=== PATIENT | male | born 1960 | race Hispanic/Latino ===

== ENCOUNTER 2017-02-11 05:46 | Observation (INO) | payer OTHER ==
--- NOTE | 2017-02-11 06:33 | ED PDOC ---
Upper Extremity Pain/Injury Time Seen by Provider: 02/11/17 06:06 Chief Complaint (Nursing): Upper Extremity Problem/Injury Chief Complaint (Provider): Right wrist and shoulder pain History Per: Patient History/Exam Limitations: no limitations Onset/Duration Of Symptoms: Days (4) Current Symptoms Are (Timing): Still Present Quality: "Pain" Severity: Moderate Additional History Per: Patient Additional Complaint(s): 56 y/o male here on the advice of Dr. Bender. He complains that he slipped and fell 4 days ago and since then has had right wrist pain and swelling, decreased ROM of the right hand, right shoulder pain, and right clavical pain. Denies head injury, LOC, or other complaint. Past Medical History Vital Signs: Last Vital Signs Temp 98.1 F 02/11/17 05:52 Pulse 98 H 02/11/17 05:52 Resp 16 02/11/17 05:52 BP 176/98 H 02/11/17 05:52 Pulse Ox 100 02/11/17 05:52 - Medical History PMH: Diabetes, HTN Other PMH: Kidney transplant - Surgical History Other surgeries: Kidney transplant, cardiac ablation - Family History Family History: States: Unknown Family Hx - Home Medications Home Medications: Ambulatory Orders Medication Instructions Recorded Acyclovir [Zovirax] 800 mg PO DAILY 02/11/17 Atorvastatin [Lipitor] 80 mg PO DAILY 02/11/17 Ergocalciferol (Vitamin D2) 5,000 units PO QWK 02/11/17 [Vitamin D] Gemfibrozil 600 mg PO BID 02/11/17 Insulin Detemir [Levemir] 50 units SC DAILY 02/11/17 Insulin Lispro [Humalog Kwikpen 20 units SC BID 02/11/17 U-100] Mycophenolate Mofetil [Cellcept] 500 mg PO BID 02/11/17 Pantoprazole Sodium [Protonix] 40 mg PO DAILY 02/11/17 Prednisone [Porfirio] 5 mg PO DAILY 02/11/17 Tacrolimus [Prograf Cap] 1 mg PO DAILY 02/11/17 Valsartan [Diovan] 320 mg PO DAILY 02/11/17 amLODIPine [Norvasc] 5 mg PO BID 02/11/17 oxyCODONE/Acetaminophen [Percocet 1 ea PO Q4 #30 tab 02/11/17 5/325 mg Tab] - Allergies Allergies/Adverse Reactions: Allergies Allergy/AdvReac Type Severity Reaction Status Date / Time No Known Allergies Allergy Verified 02/11/17 05:55 Review of Systems ROS Statement: Except As Marked, All Systems Reviewed And Found Negative Musculoskeletal: Positive for: Shoulder Pain, Arm Pain, Hand Pain Physical Exam - Reviewed Nursing Documentation Reviewed: Yes Vital Signs Reviewed: Yes - Physical Exam Appears: Positive for: Well, Non-toxic, No Acute Distress Head Exam: Positive for: ATRAUMATIC, NORMAL INSPECTION, NORMOCEPHALIC Skin: Positive for: Normal Color, Warm, DRY Eye Exam: Positive for: EOMI, Normal appearance, PERRL ENT: Positive for: Normal ENT Inspection Neck: Positive for: Normal, Painless ROM Cardiovascular/Chest: Positive for: Regular Rate, Rhythm Respiratory: Positive for: CNT, Normal Breath Sounds Gastrointestinal/Abdominal: Positive for: Normal Exam, Bowel Sounds, Soft Back: Positive for: Normal Inspection Extremity: Positive for: Tenderness (right distal radius, right shoulder, right distal clavicle. ), Capillary Refill (normal), Deformity (right distal radius), Swelling (right wrist) Neurologic/Psych: Positive for: Alert, Oriented - Laboratory Results Result Diagrams: 02/11/17 06:15 02/11/17 06:15 - ECG O2 Sat by Pulse Oximetry: 100 (RA) Pulse Ox Interpretation: Normal Medical Decision Making Medical Decision Making: Initial Impression: Distal Radius Fracture v. Shoulder Fracture v. Clavicular Fracture. Clinically this appears to be a Colles Fracture. Initial Plan: - XR Right shoulder, wrist, and forearm. - IV Morphine for pain control. - Consult Dr. Bender 06:34AM: Spoke with Dr. Bender for management of apparaent acute wrist fracture who asked that the patient be admitted to the hospitalist. Xray wrist distal radius fx Xray clavicle no acute findings Xray shoulder no acute findings Xray chest rib possible 10th rib fx Scribe Attestation: Documented by Dina Mckeon, acting as a scribe for Veronica Monroe MD. Scribe Attestation: All medical record entries made by the Scribe were at my direction and personally dictated by me. I have reviewed the chart and agree that the record accurately reflects my personal performance of the history, physical exam, medical decision making, and the department course for this patient. I have also personally directed, reviewed, and agree with the discharge instructions and disposition. Disposition - Clinical Impression Clinical Impression: Fracture of distal end of right radius - Patient ED Disposition Is Patient to be Admitted: Yes Discussed With : Lo Elizabeth Doctor Will See Patient In The: Hospital Counseled Patient/Family Regarding: Diagnosis - Disposition Disposition Time: 06:35 Condition: GOOD - Pt Status Changed To: Hospital Disposition Of: Inpatient - Admit Certification Admit to Inpatient:: After my assessment, the patient will require hospitalization for at least two midnights. This is because of the severity of symptoms shown, intensity of services needed, and/or the medical risk in this patient being treated as an outpatient. - POA Present On Arrival: Falls Or Trauma, Poor Glycemic Control
[2017-02-11 07:36] LABS: BASO % 0.4 % (0.0-2.0); EOS # 0.2 K/uL (0.0-0.7); EOS % 2.3 % (0.0-4.0); LYMPH # 1.3 K/uL (1.0-4.3); LYMPH % 13.9 % (20.0-40.0); MEAN CELL VOLUME 92.6 fl (80.0-94.0); MEAN CORPUSCULAR HEMOGLOBIN 31.9 pg (27.0-31.0); MEAN CORPUSCULAR HGB CONC 34.4 g/dL (33.0-37.0); MEAN PLATELET VOLUME 7.8 fl (7.2-11.7); MONO # 0.9 K/uL (0.0-0.8); MONO % 8.8 % (0.0-10.0); NEUT # 7.2 K/uL (1.8-7.0); NEUT % 74.6 % (50.0-75.0); NRBC % 0.2 % (0.0-0.0); RED CELL DISTRIBUTION WIDTH 12.8 % (11.5-14.5); WHITE BLOOD COUNT 9.7 K/uL (4.8-10.8)
[2017-02-11 07:40] LABS: BLOOD UREA NITROGEN 27 mg/dl (9-20); CALCIUM 10.3 mg/dL (8.4-10.2); CARBON DIOXIDE 23 mmol/L (22-30); CHLORIDE 102 mmol/L (98-107); GFR AFRICAN-AMERICAN > 60; GLUCOSE,RANDOM 194 mg/dL (75-110); SODIUM 142 mmol/l (132-148)
[2017-02-11 07:44] LABS: POTASSIUM 4.6 MMOL/L (3.6-5.0)
--- NOTE | 2017-02-11 08:04 | CP.PCM.HP ---
History of Present Illness - History of Present Illness History of Present Illness: Chief Complaint : s/p Fall- complains of right wrist , right shoulder and right ribcage pain HPI: 56 y/o gent with hx of HTN, DM, A Fib s/p Ablation ( sinus rhythm at present, on Pradaxa ), Hx of Renal Transplant tripped on a carpet and fell 4 days ago. He used his right hand to brace himself from the fall and landed on his right side. Since the fall he started having severe right wrist pain , right shoulder and rib pain. Pain worse with movement and he also noticed swelling of his right hand/wrist area. Patient did not go to the ED at that time. He went to see his PMD who prescribed Percocet and advised him to see Orthopedics . Because of worsening pain and swelling he called Dr Bender and was advised to go to the Emergency Room. Present on Admission - Present on Admission Any Indicators Present on Admission: No Review of Systems - Review of Systems All systems: reviewed and no additional remarkable complaints except - Constitutional Constitutional: absent: Fever, Headache - EENT Eyes: absent: Change in Vision Ears: absent: Ear Discharge, Dizziness Nose/Mouth/Throat: absent: Nasal Congestion - Cardiovascular Cardiovascular: absent: Chest Pain, Chest Pain at Rest, Edema, Orthopnea, Palpitations - Respiratory Respiratory: absent: Cough, Dyspnea - Gastrointestinal Gastrointestinal: absent: Abdominal Pain, Nausea, Vomiting - Musculoskeletal Musculoskeletal: Joint Swelling, Limited Range of Motion. absent: Back Pain, Neck Pain Additional comments: right wrist shoulder and rib pain - Integumentary Integumentary: absent: Pruritus - Neurological Neurological: absent: Disequilibrium, Dizziness, Numbness, Focal Weakness, Headaches - Psychiatric Psychiatric: absent: Depression, Other - Endocrine Endocrine: absent: Polydipsia, Polyphagia, Polyuria - Hematologic/Lymphatic Hematologic: absent: Easy Bleeding, Easy Bruising Past Patient History - Infectious Disease Hx of Infectious Diseases: None - Tetanus Immunizations Tetanus Immunization: Unknown - Past Medical History & Family History Past Medical History?: Yes Pertinent Family History: Familial Nephritis ,ESRD- mother and siblings HTN ,DM :parents - Past Social History Smoking Status: Never Smoked Chewing Tobacco Use: No Cigar Use: Yes Occupation: retired Alcohol: Occasional Drugs: Denies Home Situation {Lives}: With Family Domestic Violence: Negative - CARDIAC Hx Cardiac Disorders: Yes Hx Atrial Fibrillation: Yes (s/p Ablation) Hx Hypertension: Yes - PULMONARY Hx Respiratory Disorders: No - NEUROLOGICAL Hx Neurological Disorder: No - HEENT Hx HEENT Problems: No - RENAL Hx Renal Failure: Yes (hx of Hemodialysis however had Renal Transplant in 2004, off HD since then) - ENDOCRINE/METABOLIC Hx Diabetes Mellitus Type 2: Yes - INTEGUMENTARY Hx Squamous Cell: Yes (s/p Moh's surgery for Squamous cell CA) - MUSCULOSKELETAL/RHEUMATOLOGICAL Other/Comment: hx of right 5th digit fracture- pins placed -8yrs ago - GASTROINTESTINAL Hx Gastroesophageal Reflux: Yes - GENITOURINARY/GYNECOLOGICAL Other/Comment: history of Renal Trasplant 2004. Hx of ESRD, HD- off dialysis since transplant - PSYCHIATRIC Hx Psychophysiologic Disorder: No Hx Substance Use: No - SURGICAL HISTORY Hx Surgeries: Yes Hx Kidney Transplant: Yes Other/Comment: AV Fistula sx. Renal Transplant. Ablation for A Fib. Right 5th digit pinning for fracture. Moh's surgery for Sq cell CA - ANESTHESIA Hx Anesthesia: Yes Hx Anesthesia Reactions: No Meds Allergies/Adverse Reactions: Allergies Allergy/AdvReac Type Severity Reaction Status Date / Time No Known Allergies Allergy Verified 02/11/17 05:55 Physical Exam - Constitutional Appears: Well, No Acute Distress - Head Exam Head Exam: ATRAUMATIC, NORMAL INSPECTION, NORMOCEPHALIC - Eye Exam Eye Exam: EOMI, Normal appearance, PERRL Pupil Exam: NORMAL ACCOMODATION - ENT Exam ENT Exam: Mucous Membranes Moist, Normal External Ear Exam - Neck Exam Neck exam: Positive for: Full Rom. Negative for: Meningismus - Respiratory Exam Respiratory Exam: NORMAL BREATHING PATTERN. absent: Respiratory Distress - Cardiovascular Exam Cardiovascular Exam: REGULAR RHYTHM, +S1, +S2 - GI/Abdominal Exam GI & Abdominal Exam: Normal Bowel Sounds, Soft. absent: Tenderness - Extremities Exam Extremities exam: Positive for: normal capillary refill, pedal pulses present. Negative for: calf tenderness, pedal edema Additional comments: Runable to do ROM right shoulder and wrist bec of pain tenderness right rib and shoulder - Back Exam Back exam: FULL ROM. absent: CVA tenderness (L), CVA tenderness (R) - Neurological Exam Neurological exam: Alert, CN II-XII Intact, Oriented x3, Reflexes Normal - Psychiatric Exam Psychiatric exam: Normal Affect, Normal Mood - Skin Skin Exam: Dry, Normal Color, Warm Results - Vital Signs Recent Vital Signs: Last Vital Signs Temp 98.3 F 02/11/17 07:44 Pulse 90 02/11/17 07:44 Resp 18 02/11/17 07:44 BP 147/87 02/11/17 07:44 Pulse Ox 100 02/11/17 07:43 - Labs Result Diagrams: 02/11/17 06:15 02/11/17 06:15 - EKG Data EKG Interpreted by: Myself EKG shows normal: Sinus rhythm Rate: Normal Assessment & Plan (1) Wrist fracture, right Status: Acute (2) Fall from slip, trip, or stumble Status: Acute (3) Right shoulder pain Status: Acute (4) Rib pain on right side Status: Acute (5) History of renal transplant Status: Chronic (6) HTN (hypertension) Status: Chronic (7) DM type 2 (diabetes mellitus, type 2) Status: Chronic (8) Status post ablation of atrial fibrillation Status: Chronic (9) DVT prophylaxis Status: Acute - Assessment and Plan (Free Text) Assessment: 56 y/o gent with hx of HTN, DM, A Fib s/p Ablation on PRadaxa, Hx of Renal Transplant, came in complaining of right wrist, shoulder and rib pain. Tripped and fell 4 days ago. Last intake of Pradaxa - SaturdayFebruary 08 at 4am (1) Wrist fracture, right Status: Acute Wrist Xray : comminuted distal radius fracture Ortho consult: Dr Napoleon Bruce mgt- IV Morphine prn NPO for now CBC,BMP,PT,PTT Cardio consulted- for pre op eval (2) Fall from slip, trip, or stumble Status: Acute pt tripped on carpet - used right hand to support himself denies head trauma no hip pain, no back pain (3) Right shoulder pain Status: Acute right shoulder and clavicle xray : no fracture (4) Rib pain on right side Status: Acute Rib xray: pending Pain mgt (5) History of renal transplant Status: Chronic 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 for 4 years till he got Renal Transplant - renal function stable since transplant cont Tacrolimus, Cellcept , Prednisone also on Acyclovir (6) HTN (hypertension) controlled Status: Chronic cont Diovan and Norvasc (7) DM type 2 (diabetes mellitus, type 2) Status: Chronic Accucheck q ac and HS Pt took his Levemir dose at 5am (8) Status post ablation of atrial fibrillation Status: Chronic Pt was on Pradaxa- last intake February 08 at 4am Cardiology - Dr Rosario consulted for pre op optimization Pt states had Nuclear Stress test 2 mos ago and he was told it was negative EKG (9) DVT prophylaxis Status: Acute Decision To Admit - Pt Status Changed To: Hospital Disposition Of: Inpatient - Admit Certification Admit to Inpatient:: After my assessment, the patient will require hospitalization for at least two midnights. This is because of the severity of symptoms shown, intensity of services needed, and/or the medical risk in this patient being treated as an outpatient. - . Bed Request Type: Med/Surg Admitting Physician: Flaquita Franco
[2017-02-11] MEDS ORDERED: Bacitracin Ointment 30 GM TUBE ONE (08:23)
--- NOTE | 2017-02-11 09:04 | CP.PCM.CON ---
History of Present Illness - History of Present Illness History of Present Illness: ID: 56 yo male CC: pain, swellin deformity distal radius HPI- pt presenbts after fall last week. Pt has increasing pain anmd restircted ROM R wrist. Pt had heard I am chief at [facility]. Pt presents this AM with discomfort pain and restricted ROM R wrist. Pt with numbness, tingling 1st 3 figers R had, and pain and deformity R wrist. Case discussed [facility] physiscian and pt is admitted thru ER. No evidence of compartment syndrome on quetstioning. No increase pain in passive flexion/dorsifilexion+ Review of Systems - Hematologic/Lymphatic Additional comments: admits descreased senstaion first 3 fingers R hand Past Patient History - Past Medical History & Family History Past Medical History?: Yes - Past Social History Smoking Status: Never Smoked - CARDIAC Hx Hypertension: Yes - RENAL Hx Renal Failure: Yes - ENDOCRINE/METABOLIC Hx Diabetes Mellitus Type 2: Yes - MUSCULOSKELETAL/RHEUMATOLOGICAL Hx Falls: Yes - PSYCHIATRIC Hx Substance Use: No - SURGICAL HISTORY Hx Kidney Transplant: Yes Hx Open Reduction Internal Fixation: Yes (s/p ORIF displaced 5th metacarpal fx) Other/Comment: Ablation, Right wrist surgery - ANESTHESIA Hx Anesthesia: Yes Hx Anesthesia Reactions: No Meds Allergies/Adverse Reactions: Allergies Allergy/AdvReac Type Severity Reaction Status Date / Time No Known Allergies Allergy Verified 02/11/17 05:55 Physical Exam - Additional Findings Additional findings: objective exam systemic exam- please refer to hospitalist note Musculoskekltal stance/gait- defrred R wrist ROM - restricted decreased sensation 1st 3 fingers R hand + deformity/ + pain and resticted ROM +capillary refill/ no evdince for compartment syndrome Results - Vital Signs Recent Vital Signs: Last Vital Signs Temp 98.3 F 02/11/17 08:02 Pulse 90 02/11/17 08:02 Resp 20 02/11/17 08:13 BP 147/87 02/11/17 08:02 Pulse Ox 95 02/11/17 08:13 - Labs Result Diagrams: 02/11/17 06:15 02/11/17 06:15 - Impressions Impression: Xrays displaced/comminuted distal radius fracture Assessment & Plan - Assessment and Plan (Free Text) Assessment: A- disp[-laced/comminuted distal radius fx evidnce fo median nerve compression P- Pros, cons risks and benfits of carpal tunnel exploration and release/ open reduction /internal fixation displaced distal radius fracture discussed at length. Possibility of infection, mechanical failure, thromboembolic disease discussed at length. Possibility of stiffness/ possibility of nerve injury discussed. No promises guarantees
--- NOTE | 2017-02-11 09:24 | RAD ---
PROCEDURE: Right Wrist Radiographs. HISTORY: wrist pain injury COMPARISON: None. FINDINGS: BONES: There is acute comminuted and displaced fracture at the distal right radius. Patient status post internal fixation at the 5th metacarpal bone. JOINTS: Mild arthritic degenerative changes. SOFT TISSUES: Soft tissue swelling and clips or foreign body seen adjacent to the distal right radius. OTHER FINDINGS: None. IMPRESSION: Acute comminuted and displaced fracture at the distal right radius. Soft tissue swelling and small cristela or foreign body seen adjacent to the distal right radius. Please correlate clinically.
--- NOTE | 2017-02-11 09:29 | RAD ---
PROCEDURE: Radiographs of the Right Shoulder HISTORY: shoulder pain injury COMPARISON: No prior. FINDINGS: BONES: Normal. No fracture. JOINTS: [id number]-el-[id number] degenerative changes at the AC joint. Mild narrowing of the subacromial space. SOFT TISSUES: Normal. OTHER FINDINGS: None. IMPRESSION: No evidence of acute fracture or dislocation. Degenerative changes at the AC joint.
[2017-02-11 09:56] LABS: PARTIAL THROMBOPLASTIN TIME 29.5 SECONDS (23.3-32.5)
--- NOTE | 2017-02-11 10:37 | CP.PCM.CON ---
History of Present Illness - History of Present Illness History of Present Illness: THE PATIENT IS A 56 YEAR OLD MALE WITH A HISTORY OF ATRIAL FIBRILLATION TREATED WITH SUCCESSFUL RFA, HYPERTENSION, TYPE II DM AND CRF WITH A KIDNEY STRANSPLANT. HE TRIPPED ON THE RUG OF HIS PORCH AND FELL AND BROKE HIS RIGHT WRIST. HE SAW HIS LMD WHO GAVE HIM PAIN MEDICINES AND THE PAIN WAS SP BAD TODAY THAT HE CAME TO THE ER AND X-RAYS SHOWED A RIGHT WRIST FRACTURE SO HE WAS ADMITTED. HE WAS SEEN BY ORTHOPEDICS AND WILL HAVE SURGERY AND CARDIOLOGY WAS ASKED TO SEE HIM FOR CLEARANCE PRIOR TO SURGERY. HE DENIES CHEST PAIN, PALPITATIONS OR LOC. HE DENIES CAD, CHEST PAIN OR SC HISTORY. HE HAD A NUCLEAR STRESS TEST ABOUT 6 MONTHS AGO THAT WAS NORMAL AND AN ECHOCARDIOGRAM ABOUT 2 MONTHS AGO THAT WAS GOOD. HE TAKES PRADAXA BUT HAS NOT TAKEN ANY SINCE SATURDAY. Past Patient History - Infectious Disease Hx of Infectious Diseases: None - Tetanus Immunizations Tetanus Immunization: Unknown - Past Medical History & Family History Past Medical History?: Yes - Past Social History Smoking Status: Never Smoked Chewing Tobacco Use: No Cigar Use: Yes Occupation: retired Alcohol: Occasional Drugs: Denies Home Situation {Lives}: With Family Domestic Violence: Negative - CARDIAC Hx Cardiac Disorders: Yes Hx Atrial Fibrillation: Yes (s/p Ablation) Hx Hypertension: Yes - PULMONARY Hx Respiratory Disorders: No - NEUROLOGICAL Hx Neurological Disorder: No - HEENT Hx HEENT Problems: No - RENAL Hx Renal Failure: Yes (hx of Hemodialysis however had Renal Transplant in 2004, off HD since then) - ENDOCRINE/METABOLIC Hx Diabetes Mellitus Type 2: Yes - INTEGUMENTARY Hx Squamous Cell: Yes (s/p Moh's surgery for Squamous cell CA) - MUSCULOSKELETAL/RHEUMATOLOGICAL Other/Comment: hx of right 5th digit fracture- pins placed -8yrs ago - GASTROINTESTINAL Hx Gastroesophageal Reflux: Yes - GENITOURINARY/GYNECOLOGICAL Other/Comment: history of Renal Trasplant 2004. Hx of ESRD, HD- off dialysis since transplant - PSYCHIATRIC Hx Psychophysiologic Disorder: No Hx Substance Use: No - SURGICAL HISTORY Hx Surgeries: Yes Hx Kidney Transplant: Yes Other/Comment: AV Fistula sx. Renal Transplant. Ablation for A Fib. Right 5th digit pinning for fracture. Moh's surgery for Sq cell CA - ANESTHESIA Hx Anesthesia: Yes Hx Anesthesia Reactions: No Meds Allergies/Adverse Reactions: Allergies Allergy/AdvReac Type Severity Reaction Status Date / Time No Known Allergies Allergy Verified 02/11/17 05:55 - Medications Medications: Current Medications Acyclovir (Zovirax) 800 mg PO DAILY [facility] Atorvastatin Calcium (Lipitor) 80 mg PO DAILY [facility] Cholecalciferol (Vitamin D) 5,000 iu PO QWK [facility] Insulin Detemir (Levemir) 50 units SC DAILY [facility] Morphine Sulfate (Morphine) 2 mg IVP Q4 PRN PRN Reason: Pain, severe (8-10) Last Admin: 02/11/17 09:44 Dose: 2 mg Pantoprazole Sodium (Protonix Ec Tab) 40 mg PO DAILY [facility] Prednisone (Prednisone Tab) 5 mg PO DAILY [facility] Tacrolimus (Prograf Cap) 1 mg PO DAILY [facility] Valsartan (Diovan) 320 mg PO DAILY [facility] Physical Exam - Respiratory Exam Respiratory Exam: Clear to Auscultation Bilateral - Cardiovascular Exam Cardiovascular Exam: REGULAR RHYTHM, +S1, +S2 - Additional Findings Additional findings: X-RAYS WITH DISTAL RIGHT RADIUS FRACTURE EKG NSR(NOT DIAGNOSTIC OF OLD IWMI) Results - Vital Signs Recent Vital Signs: Last Vital Signs Temp 97 F L 02/11/17 09:00 Pulse 2 L 02/11/17 09:00 Resp 18 02/11/17 09:00 BP 157/90 H 02/11/17 09:00 Pulse Ox 95 02/11/17 08:13 - Labs Result Diagrams: 02/11/17 06:15 02/11/17 06:15 Assessment & Plan - Assessment and Plan (Free Text) Assessment: FALL WITH RIGHT WRIST FRACTURE S/P RFA FOR ATRIAL FIBRILLATION HYPERTENSION KIDNEY TRANSPLANT FOR CRF DM Plan: THE PATIENT IS CLEARED FOR SURGERY FROM THE CARDIAC VIEWPOINT.
--- NOTE | 2017-02-11 10:39 | RAD ---
PROCEDURE: Radiographs of the Chest and Right Ribs. HISTORY: right rib COMPARISON: None available. TECHNIQUE: There is suspicious for acute nondisplaced fracture at the anterior aspect of the right 10th rib. FINDINGS: RIGHT RIBS: No fracture or focal lesion visualized. LUNGS: Clear. PLEURA: No pneumothorax or pleural fluid. CARDIOVASCULAR: Normal sized heart. No pulmonary vascular congestion. OTHER FINDINGS: None. IMPRESSION: Suspicious for acute nondisplaced fracture at the right 10th rib.
--- NOTE | 2017-02-11 10:41 | RAD ---
PROCEDURE: Radiographs of the right clavicle. HISTORY: clavicle pain COMPARISON: None. FINDINGS: RIGHT CLAVICLE: No fracture or focal lesion. JOINTS: Right acromioclavicular and glenohumeral joints are grossly unremarkable. SOFT TISSUES: Grossly unremarkable. OTHER FINDINGS: None. IMPRESSION: Normal radiographs of the right clavicle.
[2017-02-11] MEDS ORDERED: Propofol 10 mg/ml Inj (20 ML) ONE (11:03)
[2017-02-11] MEDS ORDERED: Lidocaine 4% (Laryng-O-Jet) Kit MM ONE (11:04)
[2017-02-11] MEDS ORDERED: Midazolam 2 MG/2 ML VIAL ONE (11:04)
[2017-02-11] MEDS ORDERED: Ropivacaine 0.5% 30ML IV ONE (11:31)
[2017-02-11] MEDS ORDERED: Lactated Ringer's 1,000 ML IV ONE (11:40)
--- NOTE | 2017-02-11 13:48 | PCM.SURG1 ---
Surgeon's Initial Post Op Note - Surgeon's Notes Surgeon: Napoleon Spring Production Supervisor: MARIAN Lu/2nd assist Az Dempsey Type of Anesthesia: General Endo, Block Regional Anesthesia Administered By: Dr Valente Pre-Operative Diagnosis: displaced/comminuteed distal radius fx. carpal tunnel syndrome-post traumatic Operative Findings: as above. flexor tenosynovitis Post-Operative Diagnosis: as above. Radio-ulnar instability (DRUJ) Operation Performed: ORIF displaced distal radius fx. \ORIF distal radius- ulnar instability. rel;ease carpal tunnel Right wrist. partial median neurolysis. partial flexor tenosynovectomy. appl volar splint Specimen/Specimens Removed: tenposynoviumj/fx callous Estimated Blood Loss: EBL {In ML}: 10 Blood Products Given: N/A Drains Used: No Drains Post-Op Condition: Good Date of Surgery/Procedure: 02/11/17 Time of Surgery/Procedure: 12:20 (time in room anaestheisa indcution time 11:40)
[2017-02-11] MEDS: HYDROmorphone 0.5 mg/0.5 ml ISec IVP PRN ×3 (14:00→15:25)
[2017-02-11] MEDS ORDERED: Lactated Ringer's 1,000 ML IV SCH (14:00)
--- NOTE | 2017-02-11 15:24 | RAD ---
PROCEDURE: CHEST RADIOGRAPH, 1 VIEW HISTORY: post right the the nerve block COMPARISON: Comparison made with chest radiograph and rib series obtained earlier same day 1st FINDINGS: LUNGS: Poor inspiration with low lung volumes, mild crowded bronchovascular markings and mild bibasilar atelectasis. PLEURA: No pneumothorax or pleural fluid seen. CARDIOVASCULAR: Cardiomegaly. OSSEOUS STRUCTURES: No significant abnormalities. VISUALIZED UPPER ABDOMEN: Normal. OTHER FINDINGS: None. IMPRESSION: No active disease.
--- NOTE | 2017-02-11 15:50 | RAD ---
PROCEDURE: Fluoroscopy dated 02/11/2017 HISTORY: FLUORO COMPARISON: Comparison made with radiographs of the right wrist obtained earlier same day TECHNIQUE: Multiple intraoperative fluoroscopic images of the right wrist performed. FINDINGS: Status post ORIF previously noted comminuted impacted fracture of the distal right radius. Please refer to operative report for additional details. Re- also again noted is metallic vascular clips within the radial and volar soft tissues apparently adjacent or overlying a elliptical shaped soft tissue density. Clinical correlation with history recommended. Stable appearing bold ORIF changes right 5th metacarpal IMPRESSION: Fluoroscopic guided ORIF. Please refer to operative report for additional details. Questionable soft tissue mass density adjacent to metallic vascular clips within the radial and volar soft tissues adjacent to the fractured distal radius.
--- NOTE | 2017-02-11 16:22 | PCM.ANESB4 ---
Infraclavicular Block - Femoral Nerve Block Date of Procedure: 02/11/17 Anesthesiologist: Isidro Pre-Procedure Diagnosis: Right wrist fracture Post-Procedure Diagnosis: Same Procedure Performed: Brachial Plexus at the Infraclavicular area Right - Procedure Infraclavicular Block: The procedure was explained to the patient that it is for the post-operative pain management. Consent was obtained after a thorough discussion with the patient regarding the benefits and possible complications of local anesthetic block of the brachial plexus at the infraclavicular area. The patient was brought to the operating room and standard monitors were applied. Time-out was held with the circulating nurse to confirm the correct surgery and the appropriate block. After applying oxygen by nasal cannula and administering IV Sedation, patient's head was gently rotated away from the operative ____right___ _ shoulder and the area medial to the coracoid process and inferior to the clavicle was carefully palpated. The ultrasound transducer was then applied to the skin in the transverse plane and the brachial plexus was visualized surrounding the axillary artery and deep to the pectoralis major and minor muscles. After thorough identification, this area was prepped with Betadine solution three times and 1 % Lidocaine was injected subcutaneously for topical anesthesia. At this point, a #21 gauge Stimuplex 4-inch needle was inserted cephalad to the ultrasound transducer and inferior to the clavicle in-plane towards the posterior aspect of the axillary artery. Needle advancement was performed carefully under ultrasound visualization. Nerve stimulator was used and twitch of the affected extremity including fingers, hand, wrist and elbow was obtained at current of __0.3___MA. After repeated negative aspiration, __20___cc of __.5_ __% Ropivacaine was injected. Under ultrasound guidance the local anesthetics were observed surrounding the cords of the brachial plexus. The needle was removed intact and sterile dressing was applied. The patient had stable vital signs, was conscious and in no apparent distress. The patient tolerated the infraclavicular block of the brachial plexus well with stable vital signs was prepared for subsequent surgery.
[2017-02-11 16:50] VITALS: BP 146/83; PULSE 90; RESP 18; TEMP 99
--- NOTE | 2017-02-11 17:21 | CP.PCM.DIS ---
Provider - Provider Date of Admission: 02/11/17 06:35 Attending physician: Lo Elizabeth MD Consults: Ortho: Dr Bender Cardio: Dr Rosario Time Spent in preparation of Discharge (in minutes): 30 Diagnosis - Discharge Diagnosis (1) Wrist fracture, right Status: Acute (2) Fall from slip, trip, or stumble Status: Acute (3) Right shoulder pain Status: Acute (4) Rib pain on right side Status: Acute (5) History of renal transplant Status: Chronic (6) HTN (hypertension) Status: Chronic (7) DM type 2 (diabetes mellitus, type 2) Status: Chronic (8) Status post ablation of atrial fibrillation Status: Chronic (9) DVT prophylaxis Status: Acute (10) Closed rib fracture Status: Acute Hospital Course - Lab Results Lab Results: Most Recent Lab Values WBC 9.7 K/uL (4.8-10.8) 02/11/17 06:15 RBC 4.53 Mil/uL (4.40-5.90) 02/11/17 06:15 Hgb 14.5 g/dL (12.0-18.0) 02/11/17 06:15 Hct 42.0 % (35.0-51.0) 02/11/17 06:15 MCV 92.6 fl (80.0-94.0) 02/11/17 06:15 MCH 31.9 pg (27.0-31.0) H 02/11/17 06:15 MCHC 34.4 g/dL (33.0-37.0) 02/11/17 06:15 RDW 12.8 % (11.5-14.5) 02/11/17 06:15 Plt Count 250 K/uL (130-400) 02/11/17 06:15 MPV 7.8 fl (7.2-11.7) 02/11/17 06:15 Neut % (Auto) 74.6 % (50.0-75.0) 02/11/17 06:15 Lymph % (Auto) 13.9 % (20.0-40.0) L 02/11/17 06:15 Candler % (Auto) 8.8 % (0.0-10.0) 02/11/17 06:15 Eos % (Auto) 2.3 % (0.0-4.0) 02/11/17 06:15 Baso % (Auto) 0.4 % (0.0-2.0) 02/11/17 06:15 Neut # 7.2 K/uL (1.8-7.0) H 02/11/17 06:15 Lymph # 1.3 K/uL (1.0-4.3) 02/11/17 06:15 Candler # 0.9 K/uL (0.0-0.8) H 02/11/17 06:15 Eos # 0.2 K/uL (0.0-0.7) 02/11/17 06:15 Baso # 0.0 K/uL (0.0-0.2) 02/11/17 06:15 PT 10.0 SECONDS (9.6-11.2) 02/11/17 06:15 INR 0.96 (0.92-1.08) 02/11/17 06:15 APTT 29.5 SECONDS (23.3-32.5) 02/11/17 06:15 Sodium 142 mmol/l (132-148) 02/11/17 06:15 Potassium 4.6 MMOL/L (3.6-5.0) 02/11/17 06:15 Chloride 102 mmol/L (98-107) 02/11/17 06:15 Carbon Dioxide 23 mmol/L (22-30) 02/11/17 06:15 Anion Gap 22 (10-20) H 02/11/17 06:15 BUN 27 mg/dl (9-20) H 02/11/17 06:15 Creatinine 1.2 mg/dL (0.8-1.5) 02/11/17 06:15 Est GFR ( Amer) > 60 02/11/17 06:15 Est GFR (Non-Af Amer) > 60 02/11/17 06:15 POC Glucose (mg/dL) 196 mg/dL (65-110) H 02/11/17 16:36 Random Glucose 194 mg/dL (75-110) H 02/11/17 06:15 Calcium 10.3 mg/dL (8.4-10.2) H 02/11/17 06:15 Blood Type O POSITIVE 02/11/17 06:15 Blood Type Confirm O POSITIVE 02/11/17 07:52 Antibody Screen Negative 02/11/17 06:15 BBK History Checked No verified bt 02/11/17 06:15 - Hospital Course Hospital Course: 56 y/o gent with hx of HTN, DM, A Fib s/p Ablation on PRadaxa, Hx of Renal Transplant, came in complaining of right wrist, shoulder and rib pain. Tripped and fell 4 days ago. Wrist xray : comminuted fracture distal radius. CXR : poss nondisplaced fracture , 10th rib . Ortho consulted. cardio consulted for cardiac pre-op eval . Pt underwent ORIF done by Dr Bender. PT /OT consulted post op. (1) Wrist fracture, right s/p ORIF Post traumatic Carpal Tunnel syndrome Status: Acute Wrist Xray : comminuted distal radius fracture Ortho consult: Dr Bender - pt underwent ORIF Terrell mgt Cardio consulted- Dr Rosario (2) Fall from slip, trip, or stumble Status: Acute pt tripped on carpet - used right hand to support himself denies head trauma no hip pain, no back pain (3) Right shoulder pain Status: Acute right shoulder and clavicle xray : no fracture (4) Rib pain on right side Status: Acute Rib xray: poss nondisplaced 10th rib fracture, no Pneumothorax Pain mgt (5) History of renal transplant Status: Chronic 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 for 4 years till he got Renal Transplant - renal function stable since transplant cont Tacrolimus, Cellcept , Prednisone also on Acyclovir (6) HTN (hypertension) controlled Status: Chronic cont Diovan and Norvasc (7) DM type 2 (diabetes mellitus, type 2) Status: Chronic Accucheck q ac and HS cont Levemir (8) Status post ablation of atrial fibrillation Status: Chronic Pt was on Pradaxa- last intake February 08 at 4am- on hold Cardiology - Dr Rosario consulted for pre op optimization Pt states he had Nuclear Stress test 2 mos ago and he was told it was negative EKG Discharge Exam - Head Exam Head Exam: ATRAUMATIC, NORMAL INSPECTION, NORMOCEPHALIC - Eye Exam Eye Exam: EOMI, Normal appearance, PERRL Pupil Exam: NORMAL ACCOMODATION - ENT Exam ENT Exam: Mucous Membranes Moist, Normal External Ear Exam - Neck Exam Neck exam: Full Rom - Respiratory Exam Respiratory Exam: NORMAL BREATHING PATTERN. absent: Respiratory Distress - Cardiovascular Exam Cardiovascular Exam: +S1, +S2. absent: REGULAR RHYTHM - GI/Abdominal Exam GI & Abdominal Exam: Normal Bowel Sounds, Soft. absent: Tenderness - Extremities Exam Extremities exam: normal capillary refill, pedal pulses present Additional comments: Right arm with dressing - elevated to pole - Back Exam Back exam: FULL ROM. absent: CVA tenderness (L), CVA tenderness (R), paraspinal tenderness, vertebral tenderness - Neurological Exam Neurological exam: Alert, CN II-XII Intact, Normal Gait, Oriented x3, Reflexes Normal - Psychiatric Exam Psychiatric exam: Normal Affect, Normal Mood - Skin Skin Exam: Dry, Normal Color, Warm Discharge Plan - Discharge Medications Prescriptions: oxyCODONE/Acetaminophen [Percocet 5/325 mg Tab] 1 ea PO Q4 #30 tab - Follow Up Plan Condition: GOOD Additional Instructions: ff up with Dr Bender in 1 wk ff up with PMD mery keep right arm elevated Referrals: Berto Bender III, MD [Staff Provider] -
[2017-02-11 19:33] VITALS: O2SAT 100
--- NOTE | 2017-02-11 19:50 | CARD ---
APPROVED REPORT EKG Measurement Heart [id number] <Conclusion> Normal sinus rhythm Minimal voltage criteria for LVH, may be normal variant Inferior infarct, age undetermined-not diagnostic Abnormal ECG
[2017-02-12] MEDS ORDERED: Insulin Detemir 100 Units/ml Inj SC SCH (09:00)
[2017-02-12] MEDS ORDERED: Pantoprazole 40 mg EC Tab PO SCH (09:00)
--- NOTE | 2017-02-12 10:42 | OP ---
PROCEDURE DATE: 02/11/2017 PREOPERATIVE DIAGNOSES: 1. Comminuted displaced fracture of the distal radius. 2. Dislocation of the distal radioulnar joint. POSTOPERATIVE DIAGNOSES: 1. Comminuted displaced distal radius fracture. 2. Median nerve compression, carpal tunnel syndrome. 3. Dislocation, instability, radioulnar joint. ANESTHESIA: General endotracheal anesthesia; Dr. Aranda. COMPLICATIONS: None. DRAINS: None. OPERATIVE PROCEDURES: 1. Open reduction internal fixation, displaced distal radius fracture, right wrist. 2. Release, median nerve compression. 3. Open reduction internal fixation, distal radioulnar joint. 4. Partial median nerve neurolysis. 5. Partial flexor tenosynovectomy. 6. Application of volar splint. SURGEON: Berto Bender MD PAINTER [employer]EL: Iqra Parkinson, Certified Registered Nursing Motor Vehicle Clerk. SECOND TECHNOLOGY CONSULTANT: Az Dempsey. BLOOD LOSS: Approximately 10 mL. OPERATIVE INDICATION: The patient a gentleman who presents to the Emergency Room at [facility] having sustained a fall with a fracture of the wrist and dislocation of the distal radioulnar joint several days prior. The patient had come to [facility] se he knew I was chief there. The patient was evaluated in the Emergency Room and admitted after x-r ays had been obtained. Pros, cons, risks and benefits of surgical approach were discussed. The poss ibility of mechanical failure, infection, thromboembolic disease, secondary or tertiary surgery is di scussed. The possibility of hardware removal is discussed. The patient and his brother are present and informed consent and wished the surgery to proceed. OPERATIVE PROCEDURE: After having obtained informed consent in the above fashion, after having ident ified side, site and procedure and a critical pause/timeout, after the satisfactory induction of the general endotracheal anesthetic, the patient identified as Alexandru Patel, in the supine position, t he right upper extremity is prepped and free draped in the usual fashion for upper extremity surgery. The tourniquet had been applied, but is not yet inflated. After exsanguinating the limb using a __ __ inch Esmarch bandage, the tourniquet which had been applied is inflated to 250 mmHg. The operation is performed under 2.0 eyeglass magnification. Under the surgeon's direction, the fluoroscope is p ositioned. Video images are generated and therapeutic decisions are made therefrom. This having bee n accomplished, after sterilely prepping and draping, after exsanguinating the limb using a ____ inch Esmarch bandage, the tourniquet which had been applied, is inflated to 250 mmHg. The patient is a d ialysis patient and has a nonfunctional shunt at the radial aspect of the distal radius. Great care is taken to avoid that region, the interval. An incision is described in the median palmar crease de viating radially at the distal crease and deviating back ulnarly in the interval between the palmaris longus tendon and the flexor carpi radialis. Skin incision is carried down through the skin and sub cutaneous tissue. Stay sutures are placed. The entire extent of the transverse carpal ligament is i dentified and the transverse carpal ligament is released using a #15 blade under direct vision. At t his point in time, there is found to be evidence of median nerve compression. A careful external med koffi neurolysis is accomplished using the tenotomy scissors under direct vision. External neurolysis having been accomplished, the wound is thoroughly irrigated. A partial flexor tenosynovectomy is acc omplished. Median neurolysis having been accomplished, the wound is thoroughly irrigated. At this p oint in time, the interval between the flexor carpi radialis tendon and the palmaris longus tendon is developed. Great care is taken to avoid injury to the interosseous branch of the median nerve. The pronator is carefully divided. The capsule is divided. Arthrotomy is accomplished and the fracture site is identified. The fracture is reduced with traction. Comminution is debrided using a hand ro ngeur and a quarter inch osteotome. The fracture having been reduced, the plate is applied and each sequential drill hole is drilled, sounded with the depth gauge and the appropriate size screw is plac ed. This having been accomplished, the position is found to be excellent. There is found to be no e vidence of intrusion into the joint of the screws. This having been accomplished, the distal radioul william joint is accomplished. The distal radioulnar joint is identified. The instability is identified and under direct vision, open reduction internal fixation of the distal radioulnar joint is accompli shed with a K-wire. The position having been stable, the wound is thoroughly irrigated. The positio n again is found to be acceptable of the plate. Careful partial medial neurolysis had been accomplis hed. Partial flexor tenosynovectomy had been accomplished. The wound is thoroughly irrigated. Clos ure is in layers with interrupted Vicryl and nylon and cristela. A Gal Mcleod compression dressing and volar splint is applied. Berto Bender MD cc: [id number] TT: 02/12/2017 10:41:44 tn
== END 2017-02-11 18:26 | disposition home or self-care (01) ==
LOC: H.ER 05:46 → H.ERHOLD 06:35 → INTOOBSV 06:35 → H.MEDSURG1 08:10
PROVIDERS: ADMIT Internal Medicine; ATTEND Internal Medicine
DX: S52.501A Unspecified fracture of the lower end of right radius, initial encounter for closed fracture (principal); S22.31XA Fracture of one rib, right side, initial encounter for closed fracture; W01.0XXA Fall on same level from slipping, tripping and stumbling without subsequent striking against object, initial encounter; Y93.9 Activity, unspecified; Y92.008 Other place in unspecified non-institutional (private) residence as the place of occurrence of the external cause; G56.01 Carpal tunnel syndrome, right upper limb; I48.2 Chronic atrial fibrillation; Z79.01 Long term (current) use of anticoagulants; Z94.0 Kidney transplant status; M65.9 Synovitis and tenosynovitis, unspecified; E11.9 Type 2 diabetes mellitus without complications; I10 Essential (primary) hypertension; S63.014A Dislocation of distal radioulnar joint of right wrist, initial encounter